=== PATIENT | female | born 1950 | race Caucasian/White ===

== ENCOUNTER 2017-06-16 18:19 | Emergency (ER) | payer MEDICARE ==
[2017-06-16 19:59] LABS: Hematocrit 43 % (35-47); Hemoglobin 14.2 g/dl (12.0-16.0); Mean Corpuscular HGB Conc 33 g/dl (31-36); Mean Corpuscular Hemoglobin 32 pg (27-31); Mean Corpuscular Volume 95 fL (80-97); Mean Platelet Volume 7 um3 (7.4-10.4); Red Cell Distribution Width 13 % (10.5-15); White Blood Count 12.5 10^3/ul (3.5-10.8)
[2017-06-16 20:13] LABS: Albumin 3.9 g/dL (3.2-5.2); BUN/Creatinine Ratio 17.1 (8-20); Calcium 9.2 mg/dL (8.6-10.3); EGFR African American 88.9 (>60); EGFR Non-African American 69.1 (>60); Globulin 2.9 g/dL (2-4); Magnesium 2.1 mg/dL (1.9-2.7); Potassium 3.8 mmol/L (3.5-5.0); Total Bilirubin 0.5 mg/dL (0.2-1.0); Total Protein 6.8 g/dL (6.4-8.9)
[2017-06-16 21:47] LABS: Urine Bacteria Absent (Absent); Urine Bilirubin Negative (Negative); Urine Glucose Negative (Negative); Urine Nitrite Positive (Negative)
[2017-06-16] MEDS ORDERED: Sulfamethox/Trimethoprim DS 800/160* TAB PO ONE (22:23)
[2017-06-16 22:36] VITALS: BP 130/66
--- NOTE | 2017-06-16 23:14 | ED ---
Allergic Reaction/Systemic - HPI Summary HPI Summary: 67 y/o female with h/o UTI with altered mental status after overdose on trazdone last week, seen at [facility], put on Cipro monday. patient took first dose yesterday, states she has been feeling jittery, shaky, anxious. no shortness of breath, ? heart racing. patients concerned about overdosing on medication, has taken all medication away from patient as states patient was taking multiple trazadone tablets atnight for an extended period. patient now has trouble sleeping. 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 - Onset/Duration: Sudden Onset, Started days ago Timing: Constant Severity Initially: Moderate Severity Currently: Moderate Pain Intensity: 4 Pain Scale Used: 0-10 Numeric PMH/Surg Hx/FS Hx/Imm Hx Previously Healthy: No - recent h/o uTi Infectious Disease History: No Infectious Disease History: Denies: Traveled Outside the [place] in Last 30 Days - Social History Alcohol Use: None Substance Use Type: Reports: Prescribed Smoking Status (MU): Current Every Day Smoker Review of Systems Positive: Skin Diaphoresis Positive: Palpitations Psychological: Other - insomnia All Other Systems Reviewed And Are Negative: Yes Physical Exam Triage Information Reviewed: Yes Vital Signs On Initial Exam: Initial Vitals Temp Pulse Resp BP Pulse Ox 97.6 F 82 20 159/59 96 06/16/17 18:23 06/16/17 18:23 06/16/17 18:23 06/16/17 18:23 06/16/17 18:23 Vital Signs Reviewed: Yes Appearance: Positive: Well-Appearing, No Pain Distress, Well-Nourished Skin: Positive: Warm, Skin Color Reflects Adequate Perfusion Head/Face: Positive: Normal Head/Face Inspection Eyes: Positive: EOMI, SELENE, Conjunctiva Clear ENT: Positive: Normal ENT inspection, TMs normal Neck: Positive: Supple, Nontender, No Lymphadenopathy Respiratory/Lung Sounds: Positive: Clear to Auscultation, Breath Sounds Present Cardiovascular: Positive: Normal, RRR, Pulses are Symmetrical in both Upper and Lower Extremities, S1, S2 Abdomen Description: Positive: Nontender, No Organomegaly, Soft Musculoskeletal: Positive: Normal, Strength/ROM Intact Neurological: Positive: Sensory/Motor Intact, Alert, Oriented to Person Place, Time, CN Intact II-III, Normal Gait, Finger to Nose, Facial Symmetry, Speech Normal Psychiatric: Positive: Normal AVPU Assessment: Alert - Samson Coma Scale Coma Scale Total: 15 Diagnostics - Vital Signs Vital Signs Temp Pulse Resp BP Pulse Ox 06/16/17 20:30 71 22 130/66 95 06/16/17 20:00 66 20 151/56 92 06/16/17 19:30 67 20 148/72 95 06/16/17 19:02 20 145/73 06/16/17 18:23 97.6 F 82 20 159/59 96 - Laboratory Lab Results: Lab Results 06/16/17 06/16/17 06/16/17 Range/Units 19:50 19:50 21:30 WBC 12.5 H (3.5-10.8) 10^3/ul RBC 4.50 (4.0-5.4) 10^6/ul Hgb 14.2 (12.0-16.0) g/dl Hct 43 (35-47) % MCV 95 (80-97) fL MCH 32 H (27-31) pg MCHC 33 (31-36) g/dl RDW 13 (10.5-15) % Plt Count 399 (150-450) 10^3/ul MPV 7 L (7.4-10.4) um3 Neut % (Auto) 79.3 (38-83) % Lymph % (Auto) 12.9 L (25-47) % [place] % (Auto) 6.9 (1-9) % Eos % (Auto) 0.3 (0-6) % Baso % (Auto) 0.6 (0-2) % Absolute Neuts (auto) 9.9 H (1.5-7.7) 10^3/ul Absolute Lymphs (auto) 1.6 (1.0-4.8) 10^3/ul Absolute Monos (auto) 0.9 H (0-0.8) 10^3/ul Absolute Eos (auto) 0 (0-0.6) 10^3/ul Absolute Basos (auto) 0.1 (0-0.2) 10^3/ul Absolute Nucleated RBC 0 10^3/ul Nucleated RBC % 0 Sodium 137 (133-145) mmol/L Potassium 3.8 (3.5-5.0) mmol/L Chloride 101 (101-111) mmol/L Carbon Dioxide 26 (22-32) mmol/L Anion Gap 10 (2-11) mmol/L BUN 14 (6-24) mg/dL Creatinine 0.82 (0.51-0.95) mg/dL Est GFR ( Amer) 88.9 (>60) Est GFR (Non-Af Amer) 69.1 (>60) BUN/Creatinine Ratio 17.1 (8-20) Glucose 93 (70-100) mg/dL Calcium 9.2 (8.6-10.3) mg/dL Magnesium 2.1 (1.9-2.7) mg/dL Total Bilirubin 0.50 (0.2-1.0) mg/dL AST 17 (13-39) U/L ALT 17 (7-52) U/L Alkaline Phosphatase 91 (34-104) U/L Total Protein 6.8 (6.4-8.9) g/dL Albumin 3.9 (3.2-5.2) g/dL Globulin 2.9 (2-4) g/dL Albumin/Globulin Ratio 1.3 (1-3) Urine Color Blanche Urine Appearance Cloudy Urine pH 6.0 (5-9) Ur Specific [place] 1.018 (1.010-1.030) Urine Protein 1+(30 mg/dl) H (Negative) Urine Ketones 1+ H (Negative) Urine Blood Negative (Negative) Urine Nitrate Positive H (Negative) Urine Bilirubin Negative (Negative) Urine Urobilinogen Negative (Negative) Ur Leukocyte Esterase 1+ H (Negative) Urine WBC (Auto) 1+(6-10/hpf) H (Absent) Urine RBC (Auto) Absent (Absent) Ur Squamous Epith Cells Present H (Absent) Urine Bacteria Absent (Absent) Urine Glucose Negative (Negative) Urine Ascorbic Acid * H (Negative) Result Diagrams: 06/16/17 19:50 06/16/17 19:50 Lab Statement: Any lab studies that have been ordered have been reviewed, and results considered in the medical decision making process. Allergic Reaction Course/Dx - Course Course Of Treatment: lab work wnl's, UA + for UTI. abx given, follow up with PCP - Diagnoses Provider Diagnoses: UTI (urinary tract infection) Discharge - Discharge Plan Condition: Good Disposition: HOME Prescriptions: Sulfamethox/Trimethoprim DS* [Bactrim DS 800/160 TAB*] 1 tab PO BID #14 tab Patient Education Materials: Urinary Tract Infection in Women (ED) Referrals: Bonifacio Cabello DO [Primary Care Provider] - Additional Instructions: - Tkae antibiotics as directed - Return to ER with increased pain, mental status changes, decreased mentation - Follow up with primary physician Monday
== END 2017-06-16 22:36 | disposition home or self-care (01) ==
LOC: ED 18:19
DX: N39.0 Urinary tract infection, site not specified (principal); R00.2 Palpitations; F17.210 Nicotine dependence, cigarettes, uncomplicated
CPT/HCPCS: 36415; 80053; 81003; 81015; 83735; 85025; 87086; 99282; A9270-GY

== ENCOUNTER 2019-03-07 13:09 | Emergency (ER) | payer MEDICARE ==
[2019-03-07 14:35] LABS: ABS Basophils 0.1 10^3/ul (0-0.2); ABS Eosinophils 0.2 10^3/ul (0-0.6); ABS Lymphocytes 2.3 10^3/ul (1.0-4.8); ABS Monocytes 0.9 10^3/ul (0-0.8); ABS Neutrophils 7.9 10^3/ul (1.5-7.7); Eosinophil % 1.8 %; Hematocrit 44 % (35-47); Hemoglobin 14.6 g/dL (12.0-16.0); Lymphocyte % 19.8 %; Mean Corpuscular HGB Conc 33 g/dL (31-36); Mean Corpuscular Hemoglobin 31 pg (27-31); Mean Corpuscular Volume 95 fL (80-97); Mean Platelet Volume 7.6 fL (7.4-10.4); Platelet Count 304 10^3/uL (150-450); Red Blood Count 4.66 10^6 /uL (3.70-4.87); Red Cell Distribution Width 13 % (10-15); White Blood Count 11.4 10^3/uL (3.5-10.8)
[2019-03-07 14:47] LABS: Albumin 4.3 g/dL (3.2-5.2); Albumin/Globulin Ratio 1.6 (1-3); BUN/Creatinine Ratio 21.3 (8-20); Calcium 9.5 mg/dL (8.6-10.3); EGFR Non-African American 58.7 (>60); Globulin 2.7 g/dL (2-4); Potassium 4.2 mmol/L (3.5-5.0); Total Bilirubin 0.4 mg/dL (0.2-1.0)
[2019-03-07] MEDS ORDERED: Acetaminophen TAB* 325 MG PO ONE (16:14)
[2019-03-07] MEDS ORDERED: Acetaminophen TAB* 325 MG ONE (16:21)
--- NOTE | 2019-03-07 16:34 | ED ---
Shortness of Breath - HPI Summary HPI Summary: This patient is a 69 year old F presenting to [facility] with a chief complaint of SOB since 2 days ago. The patient rates the pain 0/10 in severity. Symptoms aggravated by nothing. Symptoms alleviated by nothing. She states she had 2 lung [place] [facility] [place] that they created punctures in her lungs. The last biopsy was 3 days ago. Patient reports coughing and CP secondary to coughing. Patient does not have oxygen at home. Patient denies any fever, chills , erythema of eyes, sore throat, abdominal pain, N/V, dysuria, hematuria, myalgia, edema, rash, or dizziness. She has a hx of COPD and left PTX. - History of Current Complaint Chief Complaint: EDShortnessOfBreath Time Seen by Provider: 03/07/19 13:47 Hx Obtained From: Patient Onset/Duration: Sudden Onset, Lasting Days - 2, Still Present Current Severity: None Aggravating Factors: Nothing Alleviating Factors: Nothing Associated Signs & Symptoms: Cough (Nonproductive), Chest Pain w/Cough - Allergy/Home Medications Allergies/Adverse Reactions: Allergies Allergy/AdvReac Type Severity Reaction Status Date / Time No Known Allergies Allergy Verified 03/07/19 13:27 PMH/Surg Hx/FS Hx/Imm Hx Previously Healthy: No Sensory History: Denies: Hx Deafness Opthamlomology History: Denies: Hx Legally Blind EENT History: Denies: Hx Deafness Infectious Disease History: No Infectious Disease History: Denies: Traveled Outside the [place] in Last 30 Days - Social History Alcohol Use: None Hx Substance Use: No Substance Use Type: Reports: None Hx Tobacco Use: Yes Smoking Status (MU): Former Smoker Type: Cigarettes Amount Used/How Often: 1-2ppd Length of Time of Smoking/Using Tobacco: 52 years Have You Smoked in the Last Year: Yes - Patient states quit March 2018, but resumed 1 cigarette per day Review of Systems Negative: Fever, Chills Negative: Erythema Negative: Sore Throat Positive: Chest Pain Positive: Shortness Of Breath, Cough Negative: Abdominal Pain, Vomiting, Nausea Negative: dysuria, hematuria Negative: Myalgia, Edema Negative: Rash Neurological: Other - negative - dizziness All Other Systems Reviewed And Are Negative: Yes Physical Exam - Summary Physical Exam Summary: Constitutional: Well-developed, Well-nourished, Alert. (-) Distressed Skin: Warm, Dry HENT: Normocephalic; Atraumatic Eyes: Conjunctiva normal Neck: Musculoskeletal ROM normal neck. (-) JVD, (-) Stridor, (-) Tracheal deviation Cardio: Rhythm regular, rate normal, Heart sounds normal; Intact distal pulses; The pedal pulses are 2+ and symmetric. Radial pulses are 2+ and symmetric. (-) Murmur Pulmonary/Chest wall: Diminished breath sounds. (-) Respiratory distress, (-) Wheezes, (-) Rales Abd: Soft, (-) tenderness, (-) Distension, (-) Guarding, (-) Rebound Musculoskeletal: (-) Edema Lymph: (-) Cervical adenopathy Neuro: Alert, Oriented x3 Psych: Mood and affect Normal Triage Information Reviewed: Yes Vital Signs On Initial Exam: Initial Vitals Temp Pulse Resp BP Pulse Ox 97.4 F 67 16 160/88 91 03/07/19 13:22 03/07/19 13:22 03/07/19 13:22 03/07/19 13:22 03/07/19 13:22 Vital Signs Reviewed: Yes Diagnostics - Vital Signs Vital Signs Temp Pulse Resp BP Pulse Ox 03/07/19 15:00 63 21 96 03/07/19 14:37 63 18 123/77 91 03/07/19 14:08 65 21 128/77 91 03/07/19 14:00 67 91 03/07/19 13:38 64 132/77 90 03/07/19 13:37 63 92 03/07/19 13:22 97.4 F 67 16 160/88 91 - Laboratory Lab Results: Lab Results 03/07/19 03/07/19 03/07/19 Range/Units 14:02 14:02 14:02 WBC 11.4 H (3.5-10.8) 10^3/uL RBC 4.66 (3.70-4.87) 10^6 /uL Hgb 14.6 (12.0-16.0) g/dL Hct 44 (35-47) % MCV 95 (80-97) fL MCH 31 (27-31) pg MCHC 33 (31-36) g/dL RDW 13 (10-15) % Plt Count 304 (150-450) 10^3/uL MPV 7.6 (7.4-10.4) fL Neut % (Auto) 69.7 % Lymph % (Auto) 19.8 % [place] % (Auto) 7.8 % Eos % (Auto) 1.8 % Baso % (Auto) 0.9 % Absolute Neuts (auto) 7.9 H (1.5-7.7) 10^3/ul Absolute Lymphs (auto) 2.3 (1.0-4.8) 10^3/ul Absolute Monos (auto) 0.9 H (0-0.8) 10^3/ul Absolute Eos (auto) 0.2 (0-0.6) 10^3/ul Absolute Basos (auto) 0.1 (0-0.2) 10^3/ul Absolute Nucleated RBC 0.0 10^3/ul Nucleated RBC % 0.0 Sodium 138 (135-145) mmol/L Potassium 4.2 (3.5-5.0) mmol/L Chloride 102 (101-111) mmol/L Carbon Dioxide 29 (22-32) mmol/L Anion Gap 7 (2-11) mmol/L BUN 20 (6-24) mg/dL Creatinine 0.94 (0.51-0.95) mg/dL Est GFR ( Amer) 71.0 (>60) Est GFR (Non-Af Amer) 58.7 (>60) BUN/Creatinine Ratio 21.3 H (8-20) Glucose 93 (70-100) mg/dL Lactic Acid 1.0 (0.5-2.0) mmol/L Calcium 9.5 (8.6-10.3) mg/dL Total Bilirubin 0.40 (0.2-1.0) mg/dL AST 25 (13-39) U/L ALT 34 (7-52) U/L Alkaline Phosphatase 92 (34-104) U/L Troponin I 0.00 (<0.04) ng/mL Total Protein 7.0 (6.4-8.9) g/dL Albumin 4.3 (3.2-5.2) g/dL Globulin 2.7 (2-4) g/dL Albumin/Globulin Ratio 1.6 (1-3) Result Diagrams: 03/07/19 14:02 03/07/19 14:02 Lab Statement: Any lab studies that have been ordered have been reviewed, and results considered in the medical decision making process. - Radiology CXR Radiology Interpretation Completed By: Radiologist Summary of Radiographic Findings: IMPRESSION: PROGRESSION OF LEFT-SIDED PNEUMOTHORAX. These findings were reviewed by Dr. Cavazos. CXR 2 Radiology Interpretation Completed By: Radiologist Summary of Radiographic Findings: IMPRESSION: Interval resolution of left- sided pneumothorax status post small bore chest tube placement. These findings were reviewed by Dr. Cavazos. - EKG 1400 Cardiac Rate: NL - 63 BPM EKG Rhythm: Sinus Rhythm Summary of EKG Findings: 63 BPM, sinus rhythm, no STEMI, flat T wave V2-V3 Re-Evaluation - Re-Evaluation First Eval Re-Evaluation Time: 18:35 Comment: I discussed discharge with the patient. She feels comfortable caring for the valve at home. Course/Dx - Course Course Of Treatment: This patient is a 69 year old F presenting to [facility] with a chief complaint of SOB since 2 days ago. The patient rates the pain 0/10 in severity. Symptoms aggravated by nothing. Symptoms alleviated by nothing. She states she had 2 lung biopsies done [place] [facility] [place] that they created punctures in her lungs. The last biopsy was 3 days ago. Patient reports coughing and CP secondary to coughing. Patient does not have oxygen at home. Patient denies any fever, chills, erythema of eyes, sore throat, abdominal pain, N/V, dysuria, hematuria, myalgia, edema, rash, or dizziness. She has a hx of COPD and left PTX. Physical Exam findings. CXR Impression: PROGRESSION OF LEFT-SIDED PNEUMOTHORAX. CXR will be repeated one hour after first. CXR 2 Impression: Interval resolution of left-sided pneumothorax status post small bore chest tube placement. EKG at 1400: 63 BPM, sinus rhythm, no STEMI, flat T wave V2- V3. Lab results show WBC 11.4, absolute neuts (auto) 7.9, absolute monos (auto ) 0.9, BUN/creatinine ratio 21.3. The patient's diagnosis was Iatrogenic pneumothorax. During the ED Course, the patient was given Acetaminophen. Dr. Tierney consulted for the patient. He saw the patient in the ED nad performed a left tube thoracentesis. The lung was reinflated, and the patient has a heimlich valve. She and her were given instructions for caring for the valve at home. She is maintaining O2 saturations with the fully expanded lung. The patient was discharged and told to return to the ED for new or worsening symptoms. She will follow up with Dr. Tierney from surgery in 2-3 days. Patient is agreeable. - Diagnoses Provider Diagnoses: Iatrogenic pneumothorax - Physician Notifications Discussed Care of Patient With: Sumeet Tierney - surgery Time Discussed With Above Provider: 14:45 Instructed by Provider To: Other - At 1445, Dr. Tierney from surgery performed chest tube placement. At 1550, Dr. Tierney went to ED to see the patient. - Critical Care Time Critical Care Time: 30-74 min - 60 minutes Discharge - Sign-Out/Discharge Documenting (check all that apply): Patient Departure - discharge Patient Received Moderate/Deep Sedation with Procedure: No - Discharge Plan Condition: Stable Disposition: HOME Patient Education Materials: Spontaneous Pneumothorax (ED) Referrals: Bonifacio Cabello DO [Primary Care Provider] - 3 Days Sumeet Tierney MD [Medical Doctor] - 3 Days Additional Instructions: Follow up with Dr. Tierney in 2-3 days. RETURN TO THE EMERGENCY DEPARTMENT FOR ANY NEW OR WORSENING SYMPTOMS. - Billing Disposition and Condition Condition: STABLE Disposition: Home - Attestation Statements Document Initiated by Scribe: Yes Documenting Scribe: Anthony Grubbs Provider For Whom Scribe is Documenting (Include Credential): Dr. Jordan Cavazos MD Scribe Attestation: Anthony Motta, scribed for Dr. Jordan Cavazos MD on 03/07/19 at 2051. Status of Scribe Document: Ready
[2019-03-07 18:55] VITALS: BP 133/51
--- NOTE | 2019-03-07 22:27 | CONS ---
CC: Dr. Bonifacio Cabello; [facility]; Dr. Juanito Cat * SURGICAL CONSULTATION/PROCEDURE REPORT: DATE OF CONSULT: 03/07/19 LOCATION: Emergency room. HISTORY OF PRESENT ILLNESS: Ms. Stewart is a 69-year-old female, who underwent a needle biopsy of the left lung lesion 3 days ago. Pathology consistent with chronic inflammatory changes and no evidence of neoplasia, who developed shortness of breath and presented to the emergency room where she was promptly diagnosed with a left-sided pneumothorax over 50%. The patient was on oxygen and was stable, but somewhat uncomfortable with mild chest pain but shortness of breath being her main issue. The patient is a former smoker. PHYSICAL EXAM: She is in minimal distress. Afebrile. Vital signs are stable. She does have respiration rate in the 20s, however. O2 sat of 96% on 2 L. Lungs decreased breath sounds on the left. DIAGNOSTIC STUDIES: Chest x-ray reviewed. IMPRESSION: Left-sided pneumothorax post procedure, iatrogenic pneumothorax. PLAN: Placement of Heimlich valve, left tube thoracentesis for drainage. PROCEDURE NOTE: After going over risks, benefits, and alternatives, the patient agreed and signed consent. The patient's left upper chest was prepped and draped in a standard surgical fashion. A time-out was performed. Injection of lidocaine along the proposed incision inside just over the third rib was performed. We then entered the second intercostal space with 8-Scottish tubing and a significant amount of air was evacuated and was hooked up to Pleur- evac, sutured to the skin, and the patient tolerated the procedure well. Followup chest x-ray an hour later showed resolution of the pneumothorax. Plan is for from the Pleur-evac, placement of 1-way valve, and discharge home for planned followup as an outpatient. [id number] #: [id number] MTDD
== END 2019-03-07 19:04 | disposition home or self-care (01) ==
LOC: ED 13:09
DX: Z87.891 Personal history of nicotine dependence (principal); J95.811 Postprocedural pneumothorax
CPT/HCPCS: 36415; 71045; 80053; 83605; 84484; 85025; 87040; 93005; 99284; A9270-GY

== ENCOUNTER 2023-10-20 10:33 | Inpatient (IN) ==
[2023-10-20] MEDS ORDERED: Albuterol/Ipratropium NEB.SOL (2.5/0.5 MG) 3 ML NEB.SOLN INH PRN (17:36)
[2023-10-20] MEDS: Albuterol/Ipratropium NEB.SOL (2.5/0.5 MG) 3 ML NEB.SOLN INH ONE (17:40)
[2023-10-20 18:22] LABS: Hematocrit 40.1 % (35-45); Hemoglobin 13.6 g/dL (11.5-14.3); Mean Corpuscular Hemoglobin 31.4 pg (27-33); Mean Corpuscular Volume 92.4 fL (80-97); Mean Platelet Volume 7.9 fL (7.5-11.2); Platelet Count 298 10^3/uL (150-450); Red Blood Count 4.34 10^6/uL (3.63-4.92); Red Cell Distribution Width 15.3 % (12-17); White Blood Count 22.9 10^3/uL (3.8-11.8)
[2023-10-20 18:25] LABS: Urine Appearance Clear; Urine Bilirubin Negative (Negative); Urine Blood 2+ (Negative); Urine Color Amber; Urine Glucose Negative (Negative); Urine Ketones 1+ (Negative); Urine Nitrite Negative (Negative); Urine Protein 2+(100 mg/dL) (Negative); Urine Specific Gravity 1.042 (1.002-1.030); Urine Urobilinogen Positive (Negative)
[2023-10-20 18:40] LABS: ALT 126 U/L (7-52); AST 198 U/L (13-39); Albumin 2.8 g/dL (3.2-5.2); Albumin/Globulin Ratio 0.8 (1-3); Alkaline Phosphatase 187 U/L (35-149); Anion Gap 11 mmol/L (2-16); Blood Urea Nitrogen 32 mg/dL (6-24); CO2 Carbon Dioxide 22 mmol/L (22-32); Calcium 8.4 mg/dL (8.6-10.3); Chloride 97 mmol/L (101-111); Creatinine, Serum 0.78 mg/dL (0.51-0.95); Globulin 3.3 g/dL (2-4); Glucose 86 mg/dL (70-100); Magnesium 2.2 mg/dL (1.9-2.7); Phosphorus 1.7 mg/dL (2.5-5.0); Potassium 3.5 mmol/L (3.5-5.0); Sodium 130 mmol/L (135-145); Total Bilirubin 2.6 mg/dL (0.2-1.0); Total Protein 6.1 g/dL (6.4-8.9); eGFR CKD-EPI 79.2 (>60)
[2023-10-20 18:43] LABS: Urine Bacteria 1+ (Absent); Urine Red Blood Cell 1+(3-5/hpf) (Absent); Urine Squamous Epithelial Cell Present (Absent); Urine White Blood Cell Trace(0-5/hpf) (Absent)
[2023-10-20] MEDS: cefTRIAXone 1 gm/50 mL D5W 1 GM/50 ML BAG IV SCH ×2 (18:46→19:08)
[2023-10-20 18:59] LABS: ABS Basophils 0.1 10^3/uL (0.0-0.1); ABS Lymphocytes 0.4 10^3/uL (1.0-4.8); ABS Monocytes 0.8 10^3/uL (0.0-0.9); ABS Neutrophils 21.6 10^3/uL (1.5-7.6); Eosinophil % 0.1 %; Lymphocyte % 1.7 %
[2023-10-20 19:04] LABS: TSH Ultra Thyroid Stim Horm 0.55 mcIU/mL (0.34-5.60)
[2023-10-20] MEDS: Azithromycin 500 mg/250 ml NS 500 MG/250 ML BAG IVPB SCH ×2 (19:08→19:15)
[2023-10-20 19:12] LABS: Osmolality Serum 275 mOsm/kg (275-295); Urine Osmo 534 mOsm/kg (150-1150)
[2023-10-20 19:16] LABS: Folate 13.73 ng/mL (5.90-24.80)
[2023-10-20 19:17] LABS: Vitamin B12 > 1450 pg/mL (180-914)
[2023-10-20 20:12] LABS: High Sensitivity Troponin 1 Hr 17 pg/mL (<15)
[2023-10-20] MEDS: Carbidopa/Levodop CR 50/200 TAB.CR PO SCH (21:43)
[2023-10-20] MEDS: Lactated Ringers 1000 ml BAG 1,000 ML IV SCH (21:47)
[2023-10-20] MEDS ORDERED: Enoxaparin 40 MG/0.4 ML SYR SUBCUT SCH (22:00)
[2023-10-21] MEDS: SODIUM PHOSPHATE IV ONE (00:13)
[2023-10-21] MEDS: NS 0.9% IV ONE (00:13)
[2023-10-21 00:17] LABS: Activated Partial Thrombo Time 26.7 seconds (26.0-38.0); INR 1.35 (0.83-1.13)
[2023-10-21 07:01] LABS: ABS Lymphocytes 0.4 10^3/uL (1.0-4.8); ABS Monocytes 1.1 10^3/uL (0.0-0.9); ABS Neutrophils 19.9 10^3/uL (1.5-7.6); Hematocrit 34.3 % (35-45); Hemoglobin 11.6 g/dL (11.5-14.3); Lymphocyte % 1.8 %; Mean Corpuscular Hemoglobin 30.9 pg (27-33); Mean Corpuscular Hgb Conc 33.8 g/dL (31-36); Mean Corpuscular Volume 91.5 fL (80-97); Mean Platelet Volume 7.7 fL (7.5-11.2); Platelet Count 293 10^3/uL (150-450); Red Blood Count 3.75 10^6/uL (3.63-4.92); Red Cell Distribution Width 15.1 % (12-17); White Blood Count 21.4 10^3/uL (3.8-11.8)
[2023-10-21 07:20] LABS: Albumin 2.6 g/dL (3.2-5.2); Albumin/Globulin Ratio 0.9 (1-3); Calcium 7.8 mg/dL (8.6-10.3); Creatinine, Serum 0.62 mg/dL (0.51-0.95); Globulin 2.9 g/dL (2-4); Magnesium 2.4 mg/dL (1.9-2.7); Potassium 3.8 mmol/L (3.5-5.0); Total Bilirubin 1.7 mg/dL (0.2-1.0); Total Protein 5.5 g/dL (6.4-8.9); eGFR CKD-EPI 92.8 (>60)
[2023-10-21 07:21] LABS: Activated Partial Thrombo Time 27.9 seconds (26.0-38.0); INR 1.28 (0.83-1.13)
[2023-10-21] MEDS: CMCS: FLUTICAS/UMECLI/VILANT 100-62.5-25 MDI (NF) INH SCH (08:25)
[2023-10-21] MEDS: Enoxaparin 30 MG/0.3 ML SYR SUBCUT SCH (08:34)
[2023-10-21] MEDS ORDERED: Zosyn per Pharmacy NOTE FOLLOW UP SCH (09:00)
[2023-10-21] MEDS: Piperacillin/Tazobac 3.375 BAG 3.375 GM/100 ML BAG IV ONE (11:21)
[2023-10-21] MEDS: Albuterol HFA INHALER 8 gm MDI INH PRN (12:17)
[2023-10-21] MEDS: ZOSYN 3.375 GM Q8H per EXTENDED INFUSION IV SCH (16:49)
[2023-10-22 06:17] LABS: ABS Lymphocytes 0.6 10^3/uL (1.0-4.8); ABS Monocytes 1.4 10^3/uL (0.0-0.9); ABS Neutrophils 15.2 10^3/uL (1.5-7.6); Hemoglobin 11.1 g/dL (11.5-14.3); Lymphocyte % 3.4 %; Mean Corpuscular Hemoglobin 31.4 pg (27-33); Mean Corpuscular Hgb Conc 33.8 g/dL (31-36); Mean Corpuscular Volume 92.9 fL (80-97); Mean Platelet Volume 7.9 fL (7.5-11.2); Platelet Count 405 10^3/uL (150-450); Red Blood Count 3.55 10^6/uL (3.63-4.92); Red Cell Distribution Width 15.2 % (12-17); White Blood Count 17.2 10^3/uL (3.8-11.8)
[2023-10-22 06:26] LABS: Calcium 7.5 mg/dL (8.6-10.3); Creatinine, Serum 0.66 mg/dL (0.51-0.95); Potassium 3.3 mmol/L (3.5-5.0); eGFR CKD-EPI 91.4 (>60)
[2023-10-22] MEDS: Potassium Chlor 20 meq TAB.ER PO ONE (18:44)
[2023-10-23 06:39] LABS: Hematocrit 31.8 % (35-45); Hemoglobin 10.8 g/dL (11.5-14.3); Mean Corpuscular Hemoglobin 31.7 pg (27-33); Mean Corpuscular Hgb Conc 33.9 g/dL (31-36); Mean Corpuscular Volume 93.5 fL (80-97); Mean Platelet Volume 7.4 fL (7.5-11.2); Platelet Count 408 10^3/uL (150-450); Red Cell Distribution Width 15.4 % (12-17); White Blood Count 10.8 10^3/uL (3.8-11.8)
[2023-10-23 06:58] LABS: Albumin 2.5 g/dL (3.2-5.2); Albumin/Globulin Ratio 0.9 (1-3); Calcium 7.3 mg/dL (8.6-10.3); Creatinine, Serum 0.68 mg/dL (0.51-0.95); Globulin 2.7 g/dL (2-4); Magnesium 2.2 mg/dL (1.9-2.7); Potassium 3.4 mmol/L (3.5-5.0); Total Bilirubin 0.6 mg/dL (0.2-1.0); Total Protein 5.2 g/dL (6.4-8.9); eGFR CKD-EPI 90.8 (>60)
[2023-10-23 07:02] LABS: ABS Basophils 0.1 10^3/uL (0.0-0.1); ABS Lymphocytes 0.5 10^3/uL (1.0-4.8); ABS Monocytes 0.9 10^3/uL (0.0-0.9); ABS Neutrophils 9.4 10^3/uL (1.5-7.6); Lymphocyte % 4.4 %
[2023-10-23] MEDS: Potassium Chlor 20 meq TAB.ER PO ONE (09:32)
[2023-10-23] MEDS: Iohexol 300 (CONTRAST) 10 ML SDV IV ONE (15:30)
[2023-10-24 06:05] LABS: ABS Lymphocytes 0.5 10^3/uL (1.0-4.8); ABS Monocytes 0.7 10^3/uL (0.0-0.9); ABS Nucleated RBC 0.01 10^3/ul; Eosinophil % 0.2 %; Hematocrit 31.3 % (35-45); Hemoglobin 10.6 g/dL (11.5-14.3); Lymphocyte % 5.2 %; Mean Corpuscular Hemoglobin 31.7 pg (27-33); Mean Corpuscular Hgb Conc 33.9 g/dL (31-36); Mean Corpuscular Volume 93.6 fL (80-97); Mean Platelet Volume 7.4 fL (7.5-11.2); Nucleated Red Blood Cells % 0.1 %/100WBC (0.0-0.8); Platelet Count 395 10^3/uL (150-450); Red Blood Count 3.34 10^6/uL (3.63-4.92); Red Cell Distribution Width 15.8 % (12-17); White Blood Count 10.3 10^3/uL (3.8-11.8)
[2023-10-24 06:30] LABS: Calcium 7.4 mg/dL (8.6-10.3); Creatinine, Serum 0.6 mg/dL (0.51-0.95); Magnesium 2.1 mg/dL (1.9-2.7); Potassium 4.1 mmol/L (3.5-5.0); eGFR CKD-EPI 93.5 (>60)
[2023-10-24 17:08] LABS: Adenovirus F40/41 Negative (Negative); Astrovirus Negative (Negative); Cryptosporidium species Negative (Negative); Cyclospora cayetanensis Negative (Negative); Entamoeba histolytica Negative (Negative); Enteroaggregative E.coli(EAEC) Negative (Negative); Enteropathogenic Ecoli(EPEC) Negative (Negative); Enterotoxigenic Ecoli(ETEC) Negative (Negative); Norovirus GI/GII Negative (Negative); Plesiomonas shigelloides Negative (Negative); Salmonella species Negative (Negative); Sapovirus Negative (Negative); Shiga toxin producing E. coli Negative (Negative); Shigella/Enteroinvasive E.coli Negative (Negative); Specimen Source STOOL; Vibrio cholerae Negative (Negative); Yersinia species Negative (Negative)
[2023-10-25 06:01] LABS: ABS Lymphocytes 0.7 10^3/uL (1.0-4.8); ABS Monocytes 0.7 10^3/uL (0.0-0.9); ABS Neutrophils 10.8 10^3/uL (1.5-7.6); Eosinophil % 0.2 %; Hematocrit 33.6 % (35-45); Hemoglobin 11.5 g/dL (11.5-14.3); Lymphocyte % 5.4 %; Mean Corpuscular Hemoglobin 31.9 pg (27-33); Mean Corpuscular Hgb Conc 34.3 g/dL (31-36); Mean Corpuscular Volume 93.2 fL (80-97); Mean Platelet Volume 7.3 fL (7.5-11.2); Platelet Count 397 10^3/uL (150-450); Red Cell Distribution Width 15.7 % (12-17); White Blood Count 12.2 10^3/uL (3.8-11.8)
[2023-10-25 06:23] LABS: Albumin 2.5 g/dL (3.2-5.2); Albumin/Globulin Ratio 0.9 (1-3); Calcium 7.4 mg/dL (8.6-10.3); Creatinine, Serum 0.52 mg/dL (0.51-0.95); Globulin 2.8 g/dL (2-4); Magnesium 1.8 mg/dL (1.9-2.7); Potassium 3.6 mmol/L (3.5-5.0); Total Bilirubin 0.5 mg/dL (0.2-1.0); Total Protein 5.3 g/dL (6.4-8.9); eGFR CKD-EPI 96.8 (>60)
[2023-10-26 08:34] LABS: Hematocrit 36.1 % (35-45); Hemoglobin 12.1 g/dL (11.5-14.3); Mean Corpuscular Hemoglobin 31.3 pg (27-33); Mean Corpuscular Hgb Conc 33.4 g/dL (31-36); Mean Corpuscular Volume 93.8 fL (80-97); Mean Platelet Volume 7.3 fL (7.5-11.2); Platelet Count 425 10^3/uL (150-450); Red Blood Count 3.85 10^6/uL (3.63-4.92); White Blood Count 16.3 10^3/uL (3.8-11.8)
[2023-10-26 08:50] LABS: Calcium 7.6 mg/dL (8.6-10.3); Creatinine, Serum 0.56 mg/dL (0.51-0.95); Magnesium 1.8 mg/dL (1.9-2.7); Potassium 3.5 mmol/L (3.5-5.0); eGFR CKD-EPI 95.1 (>60)
[2023-10-26 09:36] LABS: ABS Monocytes 0.8 10^3/uL (0.0-0.9); ABS Neutrophils 14.4 10^3/uL (1.5-7.6); ABS Nucleated RBC 0.01 10^3/ul; Eosinophil % 0.2 %; Nucleated Red Blood Cells % 0.1 %/100WBC (0.0-0.8)
[2023-10-26] MEDS: Magic MouthWash2-BEN/MAAL/LIDO/NYST 240 ML BTL (alt formulation) SWISH SWAL SCH (10:26)
[2023-10-26] MEDS: Potassium Chloride LIQUID 20 MEQ/15 ML LIQUID PO ONE (18:12)
[2023-10-27 08:40] LABS: ABS Monocytes 0.9 10^3/uL (0.0-0.9); ABS Neutrophils 16.4 10^3/uL (1.5-7.6); Hematocrit 36.9 % (35-45); Hemoglobin 12.2 g/dL (11.5-14.3); Lymphocyte % 5.6 %; Mean Corpuscular Hemoglobin 30.8 pg (27-33); Mean Corpuscular Hgb Conc 33.1 g/dL (31-36); Mean Corpuscular Volume 92.8 fL (80-97); Mean Platelet Volume 7.3 fL (7.5-11.2); Platelet Count 419 10^3/uL (150-450); Red Blood Count 3.97 10^6/uL (3.63-4.92); Red Cell Distribution Width 15.1 % (12-17); White Blood Count 18.4 10^3/uL (3.8-11.8)
[2023-10-27 08:58] LABS: Calcium 7.6 mg/dL (8.6-10.3); Creatinine, Serum 0.54 mg/dL (0.51-0.95); Magnesium 1.8 mg/dL (1.9-2.7); Potassium 3.5 mmol/L (3.5-5.0)
[2023-10-27 19:41] LABS: C Reactive Protein 76.04 mg/L (<8.01)
[2023-10-28] MEDS: cefTRIAXone 2 gm/50 mL D5W 2 GM/50 ML BAG IV SCH (04:23)
[2023-10-28 07:31] LABS: ABS Basophils 0.1 10^3/uL (0.0-0.1); ABS Lymphocytes 1.2 10^3/uL (1.0-4.8); ABS Monocytes 0.8 10^3/uL (0.0-0.9); ABS Neutrophils 18.4 10^3/uL (1.5-7.6); Eosinophil % 0.1 %; Hematocrit 36.8 % (35-45); Hemoglobin 12.1 g/dL (11.5-14.3); Mean Corpuscular Hemoglobin 30.6 pg (27-33); Mean Corpuscular Hgb Conc 32.9 g/dL (31-36); Mean Corpuscular Volume 92.9 fL (80-97); Mean Platelet Volume 7.4 fL (7.5-11.2); Platelet Count 401 10^3/uL (150-450); Red Blood Count 3.96 10^6/uL (3.63-4.92); Red Cell Distribution Width 15.2 % (12-17); White Blood Count 20.5 10^3/uL (3.8-11.8)
[2023-10-28 07:49] LABS: Calcium 7.6 mg/dL (8.6-10.3); Creatinine, Serum 0.55 mg/dL (0.51-0.95); Magnesium 1.8 mg/dL (1.9-2.7); Potassium 3.4 mmol/L (3.5-5.0); eGFR CKD-EPI 95.5 (>60)
[2023-10-28] MEDS: Potassium Chlor 20 meq TAB.ER PO ONE (10:38)
[2023-10-29 05:53] LABS: ABS Lymphocytes 1.6 10^3/uL (1.0-4.8); ABS Monocytes 0.9 10^3/uL (0.0-0.9); ABS Neutrophils 17.1 10^3/uL (1.5-7.6); ABS Nucleated RBC 0.01 10^3/ul; Hematocrit 37.1 % (35-45); Hemoglobin 12.3 g/dL (11.5-14.3); Lymphocyte % 8.2 %; Mean Corpuscular Hemoglobin 30.7 pg (27-33); Mean Corpuscular Hgb Conc 33.2 g/dL (31-36); Mean Corpuscular Volume 92.4 fL (80-97); Mean Platelet Volume 7.4 fL (7.5-11.2); Nucleated Red Blood Cells % 0.1 %/100WBC (0.0-0.8); Platelet Count 449 10^3/uL (150-450); Red Blood Count 4.02 10^6/uL (3.63-4.92); Red Cell Distribution Width 15.1 % (12-17); White Blood Count 19.7 10^3/uL (3.8-11.8)
[2023-10-29 06:12] LABS: C Reactive Protein 69.2 mg/L (<8.01); Calcium 8.1 mg/dL (8.6-10.3); Creatinine, Serum 0.51 mg/dL (0.51-0.95); Potassium 4.1 mmol/L (3.5-5.0); eGFR CKD-EPI 97.3 (>60)
[2023-10-30] MEDS: Calcium Polycarbophil 625mg TB PO SCH (20:37)
[2023-10-31 06:22] VITALS: BP 125/66
== END 2023-10-31 09:25 | disposition home or self-care (01) | DRG 720 ==
LOC: ED 10:33 → EDHOLD 10:33 → SUATTDRO 15:39 → EDHOLD 15:57 → MED 18:21 → SUATTDRO 10-22 14:00
PROVIDERS: ADMIT Internal Medicine; ATTEND Hospitalist